=== PATIENT | male | born 1995 | race Caucasian/White ===

== ENCOUNTER 2017-03-31 19:37 | Emergency (ER) | payer OTHER ==
[~2017-03-31] VITALS: Ht 182.9 cm; Wt 78.0 kg
[2017-03-31 19:42] VITALS: Ht 182.9 cm; Wt 78.0 kg
[2017-03-31] MEDS ORDERED: XYLOCAINE 1%/SOD BICARB 20 ML VIAL INFIL ONE (20:00)
[2017-03-31 20:59] VITALS: BP 117/73; PULSE 82; TEMP 37.1; O2SAT 100
--- NOTE | 2017-03-31 21:01 | DIAGNOSTIC IMAGING REPORT ---
R HAND MIN 3 VIEWS ROUTINE CLINICAL HISTORY: 22 years-old Male presenting with R hand injury. TECHNIQUE: Frontal, oblique, and lateral views of the right hand were obtained. COMPARISON: None. FINDINGS: Dorsal lateral dislocation of the middle phalanx at the proximal interphalangeal joint of the fifth finger. A tiny ossific fragment is noted along the interpolar aspect of the head of the proximal phalanx of the fifth finger suggesting avulsion fracture from the base of the middle phalanx consistent with a volar plate injury. No other fracture identified. Mild associated soft tissue swelling. IMPRESSION: Volar plate avulsion injury at the proximal interphalangeal joint of the fifth finger with dorsal lateral dislocation of the middle phalanx. Electronically signed by: Yusef Vaca M.D. 03/31/2017 8:59 PM Dictated Date/Time: 03/31/2017 8:57 PM
--- NOTE | 2017-04-01 01:15 | EMERGENCY ROOM VISIT NOTE ---
History First contact with patient: 19:48 Chief Complaint: HAND PAIN/INJURY Stated Complaint: RT PINKY DISLOCATION History of Present Illness The patient is a 22 year old male who presents to the Emergency Room with complaints of a right fifth finger deformity and pain. The patient was playing soccer this evening when this injury happened. The patient denies any paresthesias or numbness of the finger. He denies any pain extending into the hand or wrist. The patient is [id number], and rates his discomfort a 10 out of 10. Review of Systems 10 system review was performed and was negative except for pertinent positives and negatives as indicated in history of present illness Past Medical/Surgical History Medical Problems: (1) No significant past medical history Surgical Problems: (1) No history of previous surgery Family History Unremarkable Social History Smoking Status: Never Smoker Alcohol Use: occasionally Marital Status: single Occupation Status: [employer] student Current/Historical Medications No Active Prescriptions or Reported Meds Physical Exam Vital Signs Date Time Temp Pulse Resp B/P (MAP) Pulse Ox O2 Delivery O2 Flow Rate FiO2 03/31/17 20:59 37.1 82 18 117/73 100 03/31/17 19:42 37.1 82 18 117/73 100 Room Air Pain Rating (0-10): 2.0 Physical Exam CONSTITUTIONAL: Healthy and well nourished. Alert and oriented X 3 with positive affect. Patient appears in moderate discomfort from pain. HEENT: Normocephalic, atraumatic. Pupils equal, round and reactive. NECK: Full active range of motion without discomfort. MUSCULOSKELETAL: Examination shows a deformity of the right fifth finger. There are no open wounds. Capillary refill of the fingertip is less than 2 seconds. The patient has no tenderness to palpation through the fifth metacarpal or wrist region. INTEGUMENTARY: No rash or other significant dermatologic conditions noted. NEUROLOGIC: No focal neurologic deficits noted. Right fifth fingertip is sensory intact. Medical Decision & Procedures ER Provider Diagnostic Interpretation: My interpretation of right fifth finger x-ray shows a PIP dislocation with a volar plate injury/avulsion. Radiologist report is as follows: R HAND MIN 3 VIEWS ROUTINE CLINICAL HISTORY: 22 years-old Male presenting with R hand injury. TECHNIQUE: Frontal, oblique, and lateral views of the right hand were obtained. COMPARISON: None. FINDINGS: Dorsal lateral dislocation of the middle phalanx at the proximal interphalangeal joint of the fifth finger. A tiny ossific fragment is noted along the interpolar aspect of the head of the proximal phalanx of the fifth finger suggesting avulsion fracture from the base of the middle phalanx consistent with a volar plate injury. No other fracture identified. Mild associated soft tissue swelling. IMPRESSION: Volar plate avulsion injury at the proximal interphalangeal joint of the fifth finger with dorsal lateral dislocation of the middle phalanx. Procedure Finger reduction was performed under digital block anesthesia at the patient's request. Using buffered 1% lidocaine without epinephrine, good digital block anesthesia was administered. After PIP joint reduction, collateral ligaments were examined and were intact. The patient appears to have full flexor function of the finger. Because of a possible volar plate injury, a metal splint and maritza taping were applied with the fingers in a flexed position. ED Course Patient history and physical exam were performed. Nurse's notes were reviewed. Vital signs were reviewed and were normal. [place] after patient arrival, the patient was exhibiting significant discomfort. Expedient digital block anesthesia was administered. X-rays of the finger showed a PIP joint dislocation with possible volar plate injury. The finger was reduced successfully with no ligamentis or obvious tendon injury appreciated. The patient reported that he was in a hurry as his friends were waiting for him. Because of the possibility of a volar plate injury, a metal splint and maritza tape were applied with his fourth and fifth fingers in a flexed position. He was instructed to follow-up with orthopedics for further reevaluation and management. The patient wanted to know what would happen if he was not treated , and I discussed the risk for poor outcome with tendon healing or further displacement. He was encouraged intermittently apply ice and elevate the hand for swelling. Ibuprofen or Tylenol if needed for additional pain relief. The patient was happy with plan of care, voiced understanding of all discharge instructions, and denied any pain at the time of discharge. Medical Decision Medication Reconcilliation Current Medication List: was personally reviewed by me Blood Pressure Screening Patient's blood pressure: Normal blood pressure Impression Primary Impression: Right fifth finger PIP dislocation Departure Information Dispostion Home / Self-Care Condition GOOD Prescriptions No Active Prescriptions or Reported Meds Referrals Ang Duran M.D. Forms HOME CARE DOCUMENTATION FORM, IMPORTANT VISIT INFORMATION Patient Instructions My [facility] Additional Instructions Intermittently apply ice and elevate the hand for swelling and pain. Wear maritza tape and metal splint when active to prevent any further injury to the finger. You may remove the tape and splint for personal hygiene purposes. Ibuprofen 800 mg and/or Tylenol 1000 mg every 8 hours. You may also alternate these medications for more effective pain relief: Ibuprofen --4 HRS--> Tylenol --4 HRS--> ibuprofen --4 HRS--> Tylenol .... Follow-up with [facility] (Dr. Duran) for further management - call tomorrow for an appointment.
== END 2017-03-31 21:00 | disposition home or self-care (01) ==
LOC: C.EDD 19:43
DX: S63.286A Dislocation of proximal interphalangeal joint of right little finger, initial encounter (principal); X58.XXXA Exposure to other specified factors, initial encounter

== ENCOUNTER → 2017-04-05 | Outpatient (CLI) | payer OTHER | END | disposition home or self-care (01) | LOC: C.RDSM 13:07 | PROVIDERS: ATTEND Family Medicine Sports Medicine | DX: S63.23 Subluxation of proximal interphalangeal joint of finger (principal); X58.XXXD Exposure to other specified factors, subsequent encounter ==